=== PATIENT | female | born 1965 | race American Indian/Alaskan Native ===

== ENCOUNTER 2019-03-30 14:38 | Emergency (ER) | payer OTHER ==
--- NOTE | 2019-03-30 14:48 | Emergency Department Report ---
Blank Doc - Documentation Documentation: SLIP AND FALL IN [facility] ON MARCH 24 AND HAS A APPARENT COLLES FRACTURE. ERNA GARNICA SEEN AT URGENT CARE AND WAS REFUSED BY ORTHO DUE TO FUNDS. 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
[2019-03-30] MEDS ORDERED: PERCOCET 5/325 PO STA (14:49)
[2019-03-30 14:50] VITALS: BP 121/81
--- NOTE | 2019-03-30 16:39 | XRay Report ---
PROCEDURE: XR WRIST 3+V LT TECHNIQUE: Left wrist 3 views HISTORY: FALL PAIN DEFORMITY LEFT WRIST COMPARISONS: FINDINGS: There is acute transverse fracture through the distal radial metaphysis with apex volar angulation. D istal ulna is intact. There is some comminution of the radial fracture. Carpal bones maintain normal alignment. No additional acute bony findings. IMPRESSION: Acute distal radial fracture. This document is electronically signed by Robert Frances MD., Mar 30 2019 04:37:42 PM ET
--- NOTE | 2019-03-30 18:05 | Emergency Department Report ---
Upper Extremity - HPI Chief Complaint: Extremity Injury, Upper Stated Complaint: LFT WRIST PAIN Time Seen by Provider: 03/30/19 14:46 Upper Extremity: Left Wrist Occurred When: >5 Days (1 week ago) Mechanism: Fall Severity: moderate Symptoms: Yes Pain with Movement, Yes Deformity, Yes Limited Range of Movement, Yes Swelling, No Numbness, No Weakness, No Bruising/Ecchymosis, No Laceration or Abrasion Other History: SLIP AND FALL IN [facility] ON MARCH 24 AND HAS A APPARENT COLLES FRACTURE. INITALLY SEEN AT URGENT CARE AND WAS REFUSED BY ORTHO DUE TO FUNDS. 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 ED Review of Systems ROS: Stated complaint: LFT WRIST PAIN Other details as noted in HPI Constitutional: denies: chills, fever Eyes: denies: eye pain, eye discharge, vision change ENT: denies: ear pain, throat pain Respiratory: denies: cough, shortness of breath, wheezing Cardiovascular: denies: chest pain, palpitations Endocrine: no symptoms reported Gastrointestinal: denies: abdominal pain, nausea, diarrhea Genitourinary: denies: urgency, dysuria, discharge Musculoskeletal: as per HPI, joint swelling (left wrist pain swelling deformity ) Skin: denies: rash, lesions Neurological: denies: headache, weakness, numbness, paresthesias, confusion, abnormal gait, vertigo Psychiatric: denies: anxiety, depression Hematological/Lymphatic: denies: easy bleeding, easy bruising ED Past Medical Hx - Past Medical History Previous Medical History?: No - Surgical History Past Surgical History?: No - Social History Smoking Status: Never Smoker Substance Use Type: None - Medications Home Medications: Home Medications Medication Instructions Recorded Confirmed Last Taken Type Acetaminophen/Codeine [Tylenol 1 tab PO Q6H PRN #12 tab 03/30/19 Unknown Rx /Codeine # 3 tab] Upper Extremity Exam - Exam General: Vital signs noted. No distress. Alert and acting appropriately. Head and Torso: No HEENT Abnormality, No Neck Tenderness, No Chest/Lungs Abnormality, No Abdominal Tenderness, No Back Tenderness Shoulder Exam: Yes Normal Range of Motion in Shoulder, No Shoulder Tenderness, No Clavicle Tenderness, No Shoulder Deformity, No AC Joint Tenderness Arm Exam: No Arm/Humerus Tenderness, No Arm Deformity Elbow: No Elbow Tenderness, No Normal Range of Motion in Elbow, No Elbow Deformity Forearm: Yes Forearm Tenderness, Yes Forearm Deformity, Yes Pain with Pronation, Yes Pain with Supination Wrist: Yes Wrist Tenderness, Yes Wrist Deformity, No Normal ROM in Wrist, No Snuffbox Tenderness, No Pain with Axial Thumb Compression Hand: Yes Normal ROM in Digit(s), No Hand Tenderness, No Hand Deformity, No Digit Tenderness, No Digit(s) Deformity, No Tendon Dysfunction CMS Exam: Yes Normal Distal Pulses, Yes Normal Capillary Refill, Yes Normal Distal Sensation, No Broken Skin ED Course Vital Signs 03/30/19 03/30/19 14:48 15:00 Temperature 97.8 F Pulse Rate 88 Respiratory 18 18 Rate Blood Pressure 121/81 O2 Sat by Pulse 98 Oximetry ED Medical Decision Making - Radiology Data Radiology results: report reviewed, image reviewed xray wrist Left distal radial transverse fracture communited with vular angulation closed, - Medical Decision Making xray wrist Left distal radial transverse fracture communited with vular angulation closed, this is 1 week old, distal pulses are intact, line repairer tower < 3 sec, ortho consulted Dr. Almaguer recommendation splint , follow up in outpatient in am. discussed same with patient , patient verbalized agreement and understanding of discharge plan. Critical care attestation.: If time is entered above; I have spent that time in minutes in the direct care of this critically ill patient, excluding procedure time. ED Disposition Clinical Impression: Wrist fracture, closed Qualifiers: Encounter type: initial encounter Laterality: left Qualified Code(s): S62.102A - Fracture of unspecified carpal bone, left wrist, initial encounter for closed fracture Disposition: DC-01 TO HOME OR SELFCARE Is pt being admited?: No Does the pt Need Aspirin: No Condition: Stable Instructions: Splint Care (ED), Wrist Fracture in Adults (ED) Prescriptions: Acetaminophen/Codeine [Tylenol /Codeine # 3 tab] 1 tab PO Q6H PRN #12 tab PRN Reason: pain Referrals: HEMANTH BRYAN MD [Staff Physician] - 24 Hours Forms: Work/School Release Form(ED) Time of Disposition: 18:19
== END 2019-03-30 18:25 | disposition home or self-care (01) ==
LOC: ED 14:38
DX: S62.102A Fracture of unspecified carpal bone, left wrist, initial encounter for closed fracture (principal); W01.198A Fall on same level from slipping, tripping and stumbling with subsequent striking against other object, initial encounter; Y93.89 Activity, other specified; Y92.89 Other specified places as the place of occurrence of the external cause; Y99.8 Other external cause status
CPT/HCPCS: 99283